=== PATIENT | male | born 1995 | race Caucasian/White ===

== ENCOUNTER 2019-06-06 15:07 | Emergency (ER) | payer BC ==
[2019-06-06 15:52] VITALS: BP 161/82
--- NOTE | 2019-06-06 16:05 | UC ---
Respiratory Complaint HPI - HPI Summary HPI Summary: Per hi lo driver:"Sx started 1 week ago--slight cough then, cough now has been persistent, more constant; denies other symptoms" -denies wheezing, asthma, fever -no fhx asthma + sinus congestion a few days ago that has resolved. no sinus pain -no ST or ear pain. -cough was bad last night oevrbight -has needed alb in past for bronchitis - History of Current Complaint Chief Complaint: UCGeneralIllness Stated Complaint: COUGH Time Seen by Provider: 06/06/19 16:02 Pain Intensity: 0 - Allergies/Home Medications Allergies/Adverse Reactions: Allergies Allergy/AdvReac Type Severity Reaction Status Date / Time Penicillins Allergy Intermediate Hives Verified 06/06/19 15:53 beesting Allergy Intermediate local Uncoded 06/06/19 15:53 reaction Home Medications: Home Medications EPINEPHrine [Epipen] 0.3 mg IJ SEE INSTRUCTIONS PRN 06/06/19 [History Confirmed 06/06/19] PMH/Surg Hx/FS Hx/Imm Hx Previously Healthy: Yes - Surgical History Surgical History: Yes Surgery Procedure, Year, and Place: T & A - Family History Known Family History: Negative: Respiratory Disease - no asthma - Social History Alcohol Use: Occasionally Substance Use Type: None Smoking Status (MU): Never Smoked Tobacco Review of Systems All Other Systems Reviewed And Are Negative: Yes Constitutional: Positive: Fatigue. Negative: Fever Skin: Positive: Negative. Negative: Rash Eyes: Positive: Negative. Negative: Drainage ENT: Positive: Nasal Discharge, Sinus Congestion. Negative: Sore Throat, Ear Ache, Sinus Pain/Tenderness Respiratory: Positive: Cough. Negative: Shortness Of Breath Cardiovascular: Positive: Negative. Negative: Palpitations, Chest Pain Gastrointestinal: Positive: Nausea - mild. Negative: Vomiting, Diarrhea Genitourinary: Positive: Negative. Negative: Dysuria Motor: Positive: Negative Neurovascular: Positive: Negative Musculoskeletal: Positive: Negative Neurological: Positive: Negative Psychological: Positive: Negative Is Patient Immunocompromised?: No Physical Exam Triage Information Reviewed: Yes Appearance: Well-Appearing, No Pain Distress, Well-Nourished - very pleasant, good historian Vital Signs: Initial Vital Signs Temp 98 F 06/06/19 15:50 Pulse 68 06/06/19 15:50 Resp 17 06/06/19 15:50 BP 161/82 06/06/19 15:50 Pulse Ox 100 06/06/19 15:50 Vital Signs Reviewed: Yes Eye Exam: Normal ENT Exam: Normal ENT: Positive: Hearing grossly normal, Nasal congestion, Nasal drainage, TMs normal, Uvula midline, Other - + PND. Negative: Pharyngeal erythema, TM bulging , TM dull, TM red, Tonsillar swelling, Tonsillar exudate, Hoarse voice, Sinus tenderness Dental Exam: Normal Neck exam: Normal Neck: Positive: Supple, Nontender, No Lymphadenopathy Respiratory: Positive: Lungs clear, Decreased breath sounds - mild b/l. Negative: No respiratory distress, No accessory muscle use, Respiratory distress , Crackles, Rhonchi, Stridor, Wheezing Cardiovascular Exam: Normal Cardiovascular: Positive: RRR, No Murmur Abdominal Exam: Normal Musculoskeletal Exam: Normal Neurological Exam: Normal Psychological Exam: Normal Skin Exam: Normal Respiratory Course/Dx - Course Course Of Treatment: no e/o bacterial infection -Afebrile, O2 sat 100% -alb prn. -f/u sooner if sx worsen -BP likely high bc illness/cold meds. f/u on BP - Differential Dx/Diagnosis Differential Diagnosis/HQI/PQRI: Bronchitis, Lower Resp Infection, Sinusitis Provider Diagnosis: Bronchitis Discharge ED - Sign-Out/Discharge Documenting (check all that apply): Patient Departure All imaging exams completed and their final reports reviewed: No Studies - Discharge Plan Condition: Stable Disposition: HOME Prescriptions: Albuterol HFA INHALER* [Ventolin HFA Inhaler*] 2 puff INH Q4H PRN 14 Days #1 mdi PRN Reason: Cough Patient Education Materials: Acute Bronchitis (ED) Referrals: Laura Marshall NP [Primary Care Provider] - 1 Week Additional Instructions: Increase fluids and rest. Albuterol will be helpful. Use every 4-6 hrs as needed for cough. Your blood pressure is slightly high today, please make sure to have this rechecked when your illness has improved. Cough and cold medicines can frequently raise the blood pressure. Albuterol can cause jitteriness and feelings of heart racing. - Billing Disposition and Condition Condition: STABLE Disposition: Home
== END 2019-06-06 16:20 | disposition home or self-care (01) ==
LOC: UCCORT 15:07
DX: J40 Bronchitis, not specified as acute or chronic (principal); R09.81 Nasal congestion; Z88.0 Allergy status to penicillin; Z91.030 Bee allergy status
CPT/HCPCS: 99202; G0463